=== PATIENT | male | born 1940 | race American Indian/Alaskan Native ===

== ENCOUNTER 2019-06-13 06:51 | Day surgery (SDC) | payer MEDICARE ==
[2019-06-13] MEDS ORDERED: ASPIRIN EC 325 MG TAB PO ONE (07:10)
[2019-06-13 07:55] LABS: Eosinophils # (Auto) 0.1 K/mm3 (0.0-0.4); Eosinophils % (Auto) 3.5 % (0.0-4.3); Hematocrit 36.6 % (35.5-45.6); Hemoglobin 11.9 gm/dl (11.8-15.2); Lymphocytes # (Auto) 1.2 K/mm3 (1.2-5.4); Lymphocytes % (Auto) 30.2 % (13.4-35.0); Mean Corpuscular HGB Conc 33 % (32-34); Mean Corpuscular Volume 90 fl (84-94); Monocytes # (Auto) 0.4 K/mm3 (0.0-0.8); Monocytes % (Auto) 10.8 % (0.0-7.3); Platelet Count 167 K/mm3 (140-440); Red Blood Count 4.05 M/mm3 (3.65-5.03); Red Cell Distribution Width 14.3 % (13.2-15.2)
[2019-06-13 07:56] LABS: INR 1.07 (0.87-1.13)
[2019-06-13 07:58] LABS: Calcium 9.1 mg/dL (8.4-10.2)
[2019-06-13] MEDS: SODIUM CHLORIDE 0.9% 500 ML 500 ML IV SCH ×2 (08:02→09:06)
[2019-06-13] MEDS ORDERED: HEPARIN/NS 5000 UNIT/500ML 1,000 ML IR ONE (08:18)
[2019-06-13] MEDS ORDERED: HEPARIN 10,000 UNITS/10 ML VIAL ONE (08:18)
[2019-06-13] MEDS ORDERED: NITROGLYCERIN SYRINGE 0 ML ONE (08:19)
[2019-06-13] MEDS: MIDAZOLAM 2 MG/2 ML INJ ONE ×2 (09:05→09:08)
[2019-06-13] MEDS: fentaNYL 100 MCG/2 ML INJ ONE ×2 (09:05→09:08)
[2019-06-13] MEDS: LIDOCAINE (2%) 20 MG/1 ML VIAL 20 ML MDV INFILTRATI ONE ×2 (09:05→09:16)
--- NOTE | 2019-06-13 10:24 | Cardiac Catherization Report ---
REFERRING PHYSICIAN: Dr. Raphael Harmon INDICATION FOR PROCEDURE: The patient is a pleasant 78-year-old -[place] gentleman with hypertension, chronic kidney disease, had a coronary bypass surgery in 1994, has an abnormal stress test, and he has chronic kidney disease with creatinine of 1.5. He has been cleared by Nephrology, prehydrated, has an abnormal stress test, recurrent chest pain with exertion, referred for left heart catheterization. Risks, benefits, alternatives discussed at length prior to obtaining informed consent. PROCEDURE IN DETAIL: The patient was brought to the [facility] in a postoperative state, prepped and draped in sterile fashion. An 8 mL of 2% lidocaine used to anesthetize the right groin. A standard 6-Persian sheath was used to cannulate the right common femoral via modified Seldinger technique. All exchanges performed to exchange a J-tip guidewire. JL3.5 catheter was used to engage the left main. No dampening or ventricularization. Cineangiography was performed in all projections. JR4 catheter was used to cross the aortic valve under fluoroscopic guidance. Left ventriculography was performed in 30 CROFT and 30 PORTUGUESE projections via hand injections, catheter flushed. Manual pullback performed with continuous pressure monitoring. Catheter was used to engage the right coronary. There is significant dampening. Multiple angiograms were performed. Next, I unable to cannulate any aorta coronary conduits. We selected the left subclavian very tortuous, thus third order selective left subclavian angiography was performed. Subselective CHANDLER angiography was performed. Next, catheter removed carefully out of the body over a wire. Root aortogram was performed in the PORTUGUESE projection with a pigtail catheter and a power injector used as little contrast as reasonably possible. Catheter removed from the body of wire, sheath removed. Manual pressure used to achieve hemostasis. DATA: Aortic pressure is 150/70, LV pressure is 160, LVEDP of 12 mmHg. Left ventriculography reveals preserved LV function, estimated ejection fraction of 55-60%. No evidence of aortic stenosis. CORONARY ANATOMY: This is a right dominant system. The left main is patent, but occlusion of the ostial LAD and presumptively ramus intermedius, no flow in the left system from the left coronary cusp. The right coronary appears to be occluded proximally. 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 There appears to be a 78% stenosis proximal of this segment, RV marginal branch is also noted to be patent. CHANDLER to LAD is widely patent and a large vessel. Subclavian artery is patent throughout without any significant gradient noted. Root aortogram reveals no evidence of any aortocoronary conduit. No dissection or penetrating aortic ulcer. CONCLUSIONS: 1. Severe kaibab coronary artery disease with 100% occlusion of the distal left main with patent CHANDLER to LAD. 2. 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 No evidence of any patent aorta or coronary conduits. These vessels in the right coronary are somewhat small. Preserved left ventricular systolic performance, estimated ejection fraction of 50-55% with normal LVEDP. Only mild aortic stenosis with a peak gradient of approximately 15-20 mmHg. The patient is clinically stable. We will review films with Interventional Cardiology. Medical management for now. Consider high risk PCI of the right coronary and circumflex, which is anomalous off the right coronary versus medical management given the size and chronicity. Follow up with Dr. Raphael Harmon in the office. Results of procedure explained to the patient and family and hydration, recheck creatinine in 2 days. I minimized the contrast used approximately 35-40 mL. Results of procedure explained to the patient and family. All questions and concerns were addressed. There were no immediate complications. JOB# [id number] SBBel/HODAN
[2019-06-13 13:52] VITALS: BP 149/73
== END 2019-06-13 14:30 | disposition home or self-care (01) ==
LOC: CATHLABREC 06:51
PROVIDERS: ATTEND Internal Medicine
DX: R07.89 Other chest pain (principal); R94.39 Abnormal result of other cardiovascular function study; I25.118 Atherosclerotic heart disease of native coronary artery with other forms of angina pectoris; I35.0 Nonrheumatic aortic (valve) stenosis; I13.0 Hypertensive heart and chronic kidney disease with heart failure and stage 1 through stage 4 chronic kidney disease, or unspecified chronic kidney disease; N18.9 Chronic kidney disease, unspecified; I50.9 Heart failure, unspecified; E78.00 Pure hypercholesterolemia, unspecified; K21.9 Gastro-esophageal reflux disease without esophagitis; M19.90 Unspecified osteoarthritis, unspecified site; F32.9 Major depressive disorder, single episode, unspecified; Z95.1 Presence of aortocoronary bypass graft; Z79.899 Other long term (current) drug therapy; Z79.82 Long term (current) use of aspirin; Z85.46 Personal history of malignant neoplasm of prostate; Z86.2 Personal history of diseases of the blood and blood-forming organs and certain disorders involving the immune mechanism; Z82.49 Family history of ischemic heart disease and other diseases of the circulatory system; Z88.8 Allergy status to other drugs, medicaments and biological substances
CPT/HCPCS: 36415; 80048; 85025; 85610; 85730; 93005; 93010; 93459; 93567; 99156; 99157; J1644; J2250; J3010; J7040; Q9967